=== PATIENT | female | born 1965 | race Caucasian/White ===

== ENCOUNTER → 2017-02-27 | Outpatient (CLI) | payer BC ==
[~2017-02-27] MED LIST: ERGO1CAP35 PO; LAMO150T32 PO
--- NOTE | 2017-02-27 15:12 | MAMMOGRAPHY REPORT ---
BILATERAL DIGITAL SCREENING MAMMOGRAM TOMOSYNTHESIS WITH CAD: 02/27/2017 CLINICAL HISTORY: Routine screening. Patient has no complaints. TECHNIQUE: Breast tomosynthesis in addition to standard 2D mammography was performed. Additional 2- D CC views were performed with nipples in profile. Current study was also evaluated with a Computer Aided Detection (CAD) system. COMPARISON: Comparison is made to exams dated: 02/23/2016 mammogram, 02/20/2015 mammogram, 4 ultrasound, 02/18/2014 mammogram, 04/28/2010 mammogram - [facility], and 08/29/2007 . BREAST COMPOSITION: The tissue of both breasts is extremely dense, which lowers the sensitivity of m ammography. FINDINGS: The parenchymal pattern is similar to prior mammograms. No developing mass, architectural distortion or cluster of suspicious microcalcifications is seen in either breast. IMPRESSION: ACR BI-RADS CATEGORY 2: BENIGN There is no mammographic evidence of malignancy. A 1 year screening mammogram is recommended. The pa tient will receive written notification of the results. Approximately 10% of breast cancers are not detected with mammography. A negative mammographic report should not delay biopsy if a clinically suggestive mass is present. [place] Guidry M.D. ay/:02/27/2017 13:43:26 Auto Winder: Ken Tapia M, [facility] letter sent: Normal 1/2 BI-RADS Code: ACR BI-RADS Category 2: Benign
== END | disposition home or self-care (01) ==
LOC: C.MAMM 09:19
PROVIDERS: ATTEND Family Medicine
DX: Z12.31 Encounter for screening mammogram for malignant neoplasm of breast (principal)

== ENCOUNTER → 2017-04-21 | Outpatient (CLI) | payer OTHER ==
[~2017-04-21] MED LIST changes: +LAMO150T PO; -LAMO150T32 PO
== END | disposition home or self-care (01) ==
LOC: C.PAPS 15:57
PROVIDERS: ATTEND Obstetrics & Gynecology
DX: Z12.4 Encounter for screening for malignant neoplasm of cervix (principal)

== ENCOUNTER 2017-05-08 08:28 | Emergency (ER) | payer OTHER ==
[~2017-05-08] VITALS: Ht 172.7 cm; Wt 56.3 kg
[2017-05-08 08:33] VITALS: TEMP 36.7; Ht 172.7 cm; Wt 56.3 kg
[2017-05-08] MEDS ORDERED: LAMO200T35 PO (09:14)
[2017-05-08] MEDS ORDERED: LEVE500T13 PO (09:14)
[2017-05-08] MEDS ORDERED: PROCHLORPERAZINE 5 MG/ML 2 ML VIAL IV STA (09:40)
[2017-05-08] MEDS ORDERED: KETOROLAC TROMETHAMINE 30 MG/ML VIAL IV STA (09:40)
[2017-05-08] MEDS ORDERED: SODIUM CHLORIDE 0.9% 1000ML 1,000 ML IV STA (09:42)
--- NOTE | 2017-05-08 10:16 | DIAGNOSTIC IMAGING REPORT ---
HEAD WITHOUT CONTRAST (CT) CLINICAL HISTORY: 51 years-old Female with severe lazaro. Acute severe headache with history of epilepsy TECHNIQUE: Multiple axial CT images of the head were obtained without contrast. A dose lowering technique was utilized adhering to the principles of ALARA. CT DOSE: 537.48 mGy.cm COMPARISON: CT head 07/22/2009, brain MRI 10/08/2013. FINDINGS: No acute intracranial hemorrhage, midline shift, intracranial mass, hydrocephalus, territorial ischemia or abnormal extra-axial collection. Ill-defined areas of increased attenuation within the region of the globus pallidus of the left is unchanged suggesting senescent calcification. Minimal low-attenuation within the periventricular white matter suggests microvascular ischemic changes. The calvarium is intact. The paranasal sinuses, mastoid air cells, and middle ear cavities are clear. IMPRESSION: No acute intracranial abnormality. The above report was generated using voice recognition software. It may contain grammatical, syntax or spelling errors. Electronically signed by: Jan Dye M.D. 05/08/2017 10:15 AM Dictated Date/Time: 05/08/2017 10:11 AM
[2017-05-08 11:04] LABS: BASO % 0.4 %; BASO ABS # 0.02 K/uL (0-0.2); EOS % 1.8 %; HEMATOCRIT 41.7 % (37-47); HEMOGLOBIN 14.2 g/dL (12.0-16.0); LYMPH % 27.8 %; LYMPH ABS # 1.55 K/uL (1.2-3.4); MEAN CELL VOLUME 93.5 fL (80-100); MEAN CORPUSCULAR HEMOGLOBIN 31.8 pg (25-34); MEAN CORPUSCULAR HGB CONC 34.1 g/dl (32-36); MONO % 10.8 %; NEUT % 59.2 %; PLATELET COUNT 243 K/uL (130-400); RED CELL DISTRIBUTION WIDTH SD 44.7 fL (36.4-46.3); WHITE BLOOD COUNT 5.57 K/uL (4.8-10.8)
--- NOTE | 2017-05-08 11:21 | EMERGENCY ROOM VISIT NOTE ---
History Report prepared by Mehrdad: Yousuf Orourke Under the Supervision of: Dr. Michaela Mclaughlin D.O. First contact with patient: 09:32 Chief Complaint: HEADACHE Stated Complaint: SEVERE HEADACHE, NECK PAIN AND NAUSEA History of Present Illness The patient is a 51 year old female who presents to the Emergency Room with complaints of a persistent right sided headache that began yesterday. She rates her pain a 10/10 in severity. She has a past medical history of epilepsy and is on Lamictal and Keppra. She denies any other past medical history. Four days ago , the patient had some abnormal left-sided neck swelling with a globalized headache. Her symptoms could be controlled with Ibuprofen and Aspirin at that time, which eventually helped resolve her symptoms. Two days ago, she started to have another globalized headache without any of the swelling. This persisted until today, until it changed to only a right-sided headache. Her pain is now radiating down her posterior neck into her upper back. She is experiencing nausea and some photophobia as well. She denies any fevers, vomiting, or any increased amounts of stress. She notes that she has been keeping up with her fluids. Source of History: patient Onset: yesterday Position: head Symptom Intensity: 10/10 Quality: ache Timing: constant Associated Symptoms: + nausea, No fevers, No vomiting Note: She is experiencing some photophobia as well. Her pain is radiating down the back of her neck into her upper back. Review of Systems See HPI for pertinent positives & negatives. A total of 10 systems reviewed and were otherwise negative. Past Medical & Surgical Medical Problems: (1) Epilepsy Family History Seizures Social History Smoking Status: Never Smoker Smokeless Tobacco Use: No Alcohol Use: none Drug Use: none Marital Status: Housing Status: lives with significant other Current/Historical Medications Scheduled Lamotrigine (Lamictal), 200 MG PO BID Levetiracetam (Keppra), 250 MG PO BID Allergies Coded Allergies: Penicillins (Verified Allergy, Unknown, 05/08/17) Physical Exam Vital Signs Date Time Temp Pulse Resp B/P (MAP) Pulse Ox O2 Delivery O2 Flow Rate FiO2 05/08/17 12:43 86 16 116/80 98 05/08/17 11:06 75 18 123/72 98 Room Air 05/08/17 08:33 36.7 100 18 143/87 97 Room Air Physical Exam HEENT: Head - normocephalic and atraumatic. Pupils are equal, round, and reactive to light. Extraocular eye muscles are intact and sclera are anicteric. Ears - bilaterally patent canals with noninjected tympanic membranes and no evidence of hemotympanum. Nose - moist nasal mucosa without discharge. Mouth - moist buccal mucosa. Oropharynx is nonerythematous and there is no tonsillar exudate or edema noted. Neck: Supple; no JVD, nuchal rigidity, cervical lymphadenopathy. Heart: Regular rate and rhythm. There is a normal S1 and S2 with no murmurs, clicks, or gallops appreciated. Lungs: Clear to auscultation bilaterally with no wheezes, rales, or rhonchi. Abdomen: Soft, completely nontender, nondistended, with good bowel sounds. There are no palpable pulsatile masses or hepatosplenomegaly. There is no guarding, rigidity, or rebound noted. Extremities: No evidence of cyanosis, clubbing, or edema. There are easily palpable peripheral pulses. Neuro:The patient is awake and alert, oriented to day, time, and place. Muscle strength is 5/5 in all 4 extremities. The patient has equal rate clerk strength and equal pedal push and pull. There are no cerebellar signs. Medical Decision & Procedures ER Provider Diagnostic Interpretation: Radiology results as stated below per my review and the radiologist's interpretation: HEAD WITHOUT CONTRAST (CT) CLINICAL HISTORY: 51 years-old Female with severe lazaro. Acute severe headache with history of epilepsy TECHNIQUE: Multiple axial CT images of the head were obtained without contrast. A dose lowering technique was utilized adhering to the principles of ALARA. CT DOSE: 537.48 mGy.cm COMPARISON: CT head 07/22/2009, brain MRI 10/08/2013. FINDINGS: No acute intracranial hemorrhage, midline shift, intracranial mass, hydrocephalus, territorial ischemia or abnormal extra-axial collection. Ill-defined areas of increased attenuation within the region of the globus pallidus of the left is unchanged suggesting senescent calcification. Minimal low-attenuation within the periventricular white matter suggests microvascular ischemic changes. The calvarium is intact. The paranasal sinuses, mastoid air cells, and middle ear cavities are clear. IMPRESSION: No acute intracranial abnormality. The above report was generated using voice recognition software. It may contain grammatical, syntax or spelling errors. Electronically signed by: Jan Dye M.D. 05/08/2017 10:15 AM Dictated Date/Time: 05/08/2017 10:11 AM Laboratory Results 05/08/17 10:45 Red Blood Count 4.46, Mean Corpuscular Volume 93.5, Mean Corpuscular Hemoglobin 31.8, Mean Corpuscular Hemoglobin Concent 34.1, Mean Platelet Volume 11.0, Neutrophils (%) (Auto) 59.2, Lymphocytes (%) (Auto) 27.8, Monocytes (%) (Auto) 10.8, Eosinophils (%) (Auto) 1.8, Basophils (%) (Auto) 0.4, Neutrophils # (Auto ) 3.30, Lymphocytes # (Auto) 1.55, Monocytes # (Auto) 0.60, Eosinophils # (Auto ) 0.10, Basophils # (Auto) 0.02 05/08/17 10:45 Test 05/08/17 09:40 05/08/17 10:45 05/08/17 10:50 Erythrocyte Sedimentation Rate 19 mm/hr (0-21) White Blood Count 5.57 K/uL (4.8-10.8) Red Blood Count 4.46 M/uL (4.2-5.4) Hemoglobin 14.2 g/dL (12.0-16.0) Hematocrit 41.7 % (37-47) Mean Corpuscular Volume 93.5 fL (80-100) Mean Corpuscular Hemoglobin 31.8 pg (25-34) Mean Corpuscular Hemoglobin Concent 34.1 g/dl (32-36) Platelet Count 243 K/uL (130-400) Mean Platelet Volume 11.0 fL (7.4-10.4) Neutrophils (%) (Auto) 59.2 % Lymphocytes (%) (Auto) 27.8 % Monocytes (%) (Auto) 10.8 % Eosinophils (%) (Auto) 1.8 % Basophils (%) (Auto) 0.4 % Neutrophils # (Auto) 3.30 K/uL (1.4-6.5) Lymphocytes # (Auto) 1.55 K/uL (1.2-3.4) Monocytes # (Auto) 0.60 K/uL (0.11-0.59) Eosinophils # (Auto) 0.10 K/uL (0-0.5) Basophils # (Auto) 0.02 K/uL (0-0.2) RDW Standard Deviation 44.7 fL (36.4-46.3) RDW Coefficient of Variation 13.0 % (11.5-14.5) Immature Granulocyte % (Auto) 0.0 % Immature Granulocyte # (Auto) 0.00 K/uL (0.00-0.02) Anion Gap 8.0 mmol/L (3-11) Est Creatinine Clear Calc Drug Dose 68.0 ml/min Estimated GFR () 90.0 Estimated GFR (Non- 77.7 BUN/Creatinine Ratio 17.0 (10-20) Calcium Level 9.1 mg/dl (8.5-10.1) Total Bilirubin 0.5 mg/dl (0.2-1) Aspartate Amino Transf (AST/SGOT) 14 U/L (15-37) Alanine Aminotransferase (ALT/SGPT) 24 U/L (12-78) Alkaline Phosphatase 108 U/L (45-117) C-Reactive Protein < 0.29 mg/dl (0-0.29) Total Protein 8.1 gm/dl (6.4-8.2) Albumin 4.6 gm/dl (3.4-5.0) Globulin 3.5 gm/dl (2.5-4.0) Albumin/Globulin Ratio 1.3 (0.9-2) Influenza Type A (RT-PCR) Neg for Influ A (NEG) Influenza Type B (RT-PCR) Neg for Influ B (NEG) Laboratory results per my review. Medications Administered Medications (Trade) Dose Ordered Sig/Soni Route Start Time Stop Time Status Last Admin Dose Admin Ketorolac Tromethamine (Toradol Inj) 30 mg NOW STAT IV 05/08/17 09:40 05/08/17 09:42 DC 05/08/17 11:08 30 MG Prochlorperazine Edisylate (Compazine Inj) 5 mg NOW STAT IV 05/08/17 09:40 05/08/17 09:42 DC 05/08/17 11:08 5 MG Sodium Chloride 1,000 ml @ 999 mls/hr Q1H1M STAT IV 05/08/17 09:42 05/08/17 10:42 DC 05/08/17 11:08 999 MLS/HR Procedure Compazine Inj 5 mg IV Toradol Inj 30 mg IV Sodium Chloride 1000 ml @ 999 mls/hr IV. ED Course 0932: Past medical records reviewed. The patient was evaluated in room C10. A complete history and physical exam was performed. An IV lock was initiated and labs are drawn as above. 0940: Ordered Compazine Inj 5 mg IV, Toradol Inj 30 mg IV 0942: Ordered Sodium Chloride 1000 ml @ 999 mls/hr IV. The patient will go for CT scan of the brain. 11:05 the patient is resting comfortably at this time. 1240: Upon reevaluation, the patient is feeling much better. Her headache is gone. I discussed findings and results with her. She verbalized agreement of the treatment plan. She was discharged home. Medical Decision The patient is a 51 year old female who presents to the ED with a headache. Differential diagnosis includes meningitis, influenza, dehydration, intracranial mass, cervical strain, tension headache, and migraine. Laboratory Results: Sed rate 19, no leukocytosis, stable H&H, normal renal function, normal glucose and LFTs, influenza negative, Keppra and Lamictal levels are pending Patient presents with unusual headache and some neck discomfort. She had no signs of meningismus. She is afebrile with no significant leukocytosis. I do not suspect meningitis. There is no signs of dehydration and influenza testing was negative. The patient is feeling more comfortable at this time. The headache has resolved. I've asked the patient to follow-up with the PCP if the headache returns. If symptoms worsen, she should return here to the emergency department. Medication Reconcilliation Current Medication List: was personally reviewed by me Blood Pressure Screening Patient's blood pressure: Elevated blood pressure Blood pressure disposition: Elevated BP felt to be situational Impression Primary Impression: Headache Scribe Attestation The scribe's documentation has been prepared under my direction and personally reviewed by me in its entirety. I confirm that the note above accurately reflects all work, treatment, procedures, and medical decision making performed by me. Departure Information Dispostion Home / Self-Care Referrals Kev Burrell M.D. (PCP) Mariposa Valle D.O. Forms HOME CARE DOCUMENTATION FORM, IMPORTANT VISIT INFORMATION Patient Instructions Headache Pain, My [facility] Additional Instructions Rest. Use ibuprofen for head pain. Return to the ER for worsening symptoms. Otehrwise follow up with PCP Problem Qualifiers Primary Impression: Headache Headache type: unspecified Headache chronicity pattern: acute headache Intractability: not intractable Qualified Codes: R51 - Headache
[2017-05-08 11:24] LABS: ALBUMIN 4.6 gm/dl (3.4-5.0); ALT/SGPT 24 U/L (12-78); AST/SGOT 14 U/L (15-37); BLOOD UREA NITROGEN 15 mg/dl (7-18); CALCIUM 9.1 mg/dl (8.5-10.1); CARBON DIOXIDE 28 mmol/L (21-32); CREATININE 0.86 mg/dl (0.60-1.20); GLUCOSE 96 mg/dl (70-99); POTASSIUM 3.6 mmol/L (3.5-5.1); SODIUM 138 mmol/L (136-145)
[2017-05-08 11:26] LABS: ALKALINE PHOSPHATASE 108 U/L (45-117); TOTAL PROTEIN 8.1 gm/dl (6.4-8.2)
[2017-05-08 11:43] LABS: INFLUENZA A PCR Neg for Influ A (NEG); INFLUENZA B PCR Neg for Influ B (NEG)
[2017-05-08 12:43] VITALS: BP 116/80; PULSE 86; O2SAT 98
[2017-05-11 03:31] LABS: KEPPRA (LEVETIRACETAM) *15142X 9.4 mcg/mL; LAMICTAL (LAMOTRIGINE)**22060 12.5 mcg/mL (4.0-18.0)
== END 2017-05-08 12:44 | disposition home or self-care (01) ==
LOC: C.EDB 08:30 → C.EDC 12:44
DX: R51 Headache (principal); G40.909 Epilepsy, unspecified, not intractable, without status epilepticus; Z82.0 Family history of epilepsy and other diseases of the nervous system; Z79.899 Other long term (current) drug therapy

== ENCOUNTER → 2017-05-29 | Day surgery (SDC) | payer OTHER ==
[2017-05-24 12:10] VITALS: Ht 172.7 cm; Wt 54.5 kg
[~2017-05-29] VITALS: Ht 172.7 cm; Wt 54.5 kg
[~2017-05-29] MED LIST changes: +ACETAMINOPHEN 325 MG TAB PO PRN; +ATROPINE SULFATE 0.1 MG/ML 5ML SYR IV PRN; +ATROPINE SULFATE 1% OP OINT PER APPLICATION CHARGE ONE; +BUPIVACAINE HCL 0.75% 10 ML AMP/VIAL ONE; +CEFAZOLIN SOD 1 GM VIAL ONE; +DEXAMETHASONE SOD INJ 4 MG/ML VIAL ONE; -ERGO1CAP35 PO; +EpHEDrine SULFATE INJ 50 MG/ML AMP IV PRN; +EpINEphrine INJ 1MG/ML AMP 1 MG/ML AMP ONE; +FENTANYL CITRATE INJ 50 MCG/1 ML 2 ML VIAL IV PRN; +FENTANYL CITRATE INJ 50 MCG/1 ML 2 ML VIAL ONE; +HYALURONIDASE HUMAN 150 UNIT/ML INJ ONE; +INDOCYANINE GREEN 25 MG/10 ML ONE; +LACTATED RINGER'S 1000ML 500 ML IV SCH; -LAMO150T PO; +LAMO200T35 PO; +LEVE500T13 PO; +LIDOCAINE HCL 2% 2 ML VIAL (20MG/ML) ONE; +MIDAZOLAM HCL 1 MG/ML 2ML VIAL ONE; +NEOMYCIN/POLYMYX/DEXAMETH OP OINT PER APP CHARGE ONE; +ONDANSETRON INJ 2 MG/ML 2 ML VIAL IV PRN; +POVIDONE-IODINE OP SOLN (SURGERY CNTR CHARGING ONLY) ONE; +PROPARACAINE 0.5% OP SOLN PER DROP CHARGE OPL SCH; +PROPOFOL IV EMULSION 10 MG/ML 20 ML VIAL IV ONE; +TIMOLOL MALEATE 0.5% OP SOLN PER DROP CHARGE ONE; +TRIAMCINOLONE ACETONIDE OPHTH 40 MG/ML VIAL STERILE IO ONE; +VANCOMYCIN HCL 1000MG/20ML VIAL ONE
[2017-05-29] MEDS: PHENYLEPHRINE HCL 2.5% OP SOLN PER DROP CHARGE OPL SCH ×2 (07:31→07:37)
[2017-05-29] MEDS: TROPICAMIDE 1% OP SOLN PER DROP CHARGE OPL SCH ×2 (07:32→07:38)
--- NOTE | 2017-05-29 08:11 | History & Physical Bridge - SC ---
H&P Re-Evaluation Bridge Note: pt has macular hole left eye and is having vitrectomy left eye. I have examined the patient, reviewed the History & Physical and in the interval since the performance of the History & Physical I have noted the following changes of clinical significance: No changes noted
--- NOTE | 2017-05-29 09:23 | [facility] Operative Report ---
Operative Report Date of Service May 29, 2017. Operative Report PREOPERATIVE DIAGNOSIS: Macular hole, left eye. ICD10 CODE: H35.342 POSTOPERATIVE DIAGNOSIS: same. PROCEDURE: 1. Pars plana vitrectomy, 23 gauge. 2. Membrane peeling of the internal limiting membrane. 3. Fluid-air exchange. 4. Air-gas exchange w/ SF6 20 %. All to the left eye. CPT CODE: 67240 SURGEON: Mark lFeming D.O. COMPLICATIONS: None. ESTIMATED BLOOD LOSS: None. SPECIMENS: None. ANESTHESIA: Retrobulbar block and MAC. INDICATIONS FOR PROCEDURE: The patient has a macular hole that is visually significant. Vitrectomy surgery is indicated to decrease risk of vision loss and potentially improve vision. CONSENT: The risks, benefits and alternatives were discussed with the patient including but not limited to decreased visual acuity, failure to achieve desired results, loss of the eye, infection, pain, glaucoma, lens changes, retinal tears, retinal detachment, the need for more procedures, drooping of the eyelid, blindness, and double vision. The patient is aware of risks and consents to the surgery. Consent is signed and on the chart. OPERATION AND FINDINGS: The patient was brought to the operating room where the patient was identified by name, date, and medical record number. The surgical site was confirmed with the informed written consent. The patient was sedated by the anesthesiology team after which a 50:50 mixture of 2% lidocaine and 0.75% bupivacaine with hyaluronidase was administered in a standard retrobulbar fashion. A total of 4 ml was administered without difficulty. The patient was then prepped and draped in the usual sterile manner for retinal surgery. A wire lid speculum was placed and an It 23-gauge trocar cannula system was employed. The inferior temporal trocar cannula was first placed in an angled fashion 3.75mm posterior to the surgical limbus and the infusion cannula was inserted into this cannula after which the intravitreal position was verified prior to turning the infusion on. Two more trocar cannulas were then inserted in an angled fashion, one in the superior temporal, and one in the superior nasal quadrant both 3.75mm posterior to the surgical limbus. A light pipe and vitrector were then introduced into the eye and the BIOM wide angle viewing system was brought into place. Standard core vitrectomy was performed and the vitreous was insured to be totally detached from the posterior pole with the aid of the vitrector. Next 0.05ml of indocyanine green was placed over the macular surface to stain the internal limiting membrane. This was washed from the eye after 10 seconds. At this point a flat contact lens was placed on the surface of the eye and a flex scraper and ILM forceps were then used to gently peel the internal limiting membrane surrounding the macular hole without difficulty. At this point scleral depression was performed for 360 degrees and no retinal tears or detachments were noted. A soft tip cannula was used to perform a fluid- air exchange. Next, SF6 20% was injected in through the infusion cannula for a complete gas fill of the eye. The trocar cannulas were then removed and found to be air tight. The intraocular pressure was found to be within normal limits by palpation and subconjunctival injections of vancomycin and dexamethasone were administered inferiorly and superiorly. The wire lid speculum was removed. Maxitrol and timolol were applied to the surface of the eye. A light patch and shield were taped over the surface of the eye and the patient left the Operating Room in stable condition having tolerated the procedure well. DISPOSITION: A gas bracelet was placed on the patients wrist. The patient was instructed to maintain a face down position overnight. The patient is to call immediately if there are any problems overnight. I attest to the content of the Intraoperative Record and any orders documented therein. Any exceptions are noted below.
--- NOTE | 2017-05-29 09:25 | Discharge Instructions-SurgCtr ---
Discharge Instructions Date of Service May 29, 2017. Visit Reason for Visit: Left Eye Macular Hole Discharge Discharge Diagnosis / Problem: same Discharge Goals Goal(s): Improve function Activity Recommendations Activity Limitations: per Instructions/Follow-up section Anesthesia . Post Anesthesia Instructions: If you have had General Anesthesia or IV Sedation: * Do not drive today. * Resume driving when surgeon permits. * Do not make important decisions or sign legal documents today. * Call surgeon for: 1. Temperature elevations greater than 101 degrees F. 2. Uncontrollable pain. 3. Excessive bleeding. 4. Persistent nausea and vomiting. 5. Medication intolerance (nausea, vomiting or rash). * For nausea and vomiting use only clear liquids such as: tea, soda, bouillon until nausea subsides, then gradually increase diet as tolerated. * If you have any concerns or questions, call your surgeon's office. If physician is unavailable and it is an emergency, call 911 or go to the nearest emergency room. . Instructions / Follow-Up Instructions / Follow-Up * May take Tylenol if needed for discomfort. * Do NOT lay flat on back and position head as follows: Face forward, chin down as much as possible. Sleep on right side. * Do NOT remove green bracelet until instructed to do so by your surgeon and follow these precautions: * No air travel * No travel above 2500 feet * No nitrous oxide (N2O). * Do NOT remove eye shield. * NO straining, heavy lifting (>15 pounds) or bending below waist. * Avoid getting water or soap directly into operative eye. * Do NOT rub eye. If you experience increasing eye pain not relieved by medication, please contact us immediately at [phone]. If you are unable to reach someone at the above number, call [phone] and ask to speak with the EYE DOCTOR RAILROAD SIGNAL TECHNICIAN. Inform them that you are a Dr. Fleming patient who had recent surgery. Diet Recommendations Home Diet: resume previous diet Pending Studies Studies pending at discharge: no Medical Emergencies . Who to Call and When: Medical Emergencies: If at any time you feel your situation is an emergency, please call 911 immediately. . Non-Emergent Contact Non-Emergency issues call your: Executive Office Manager . . "Provider Documentation" section prepared by Mark Fleming. .
[2017-05-29 09:26] VITALS: TEMP 36.2
[2017-05-29 11:13] VITALS: BP 110/70; PULSE 57; O2SAT 97
--- NOTE | 2017-05-29 11:21 | Anesthesia Progress Nt - [facility] ---
Anesthesia Post Op Note Date & Time May 29, 2017 at 11:20 Vital Signs Pain Intensity: 0 Vital Signs Past 12 Hours Date Time Temp Pulse Resp B/P (MAP) Pulse Ox O2 Delivery O2 Flow Rate FiO2 05/29/17 11:13 57 16 110/70 (83) 97 Room Air 05/29/17 10:28 58 16 99/61 (74) 100 Room Air 05/29/17 10:19 60 16 105/68 (80) 99 Room Air 05/29/17 09:26 36.2 66 16 122/82 (95) 99 Room Air 05/29/17 07:26 36.6 84 18 124/83 (97) 97 Room Air Notes Mental Status: alert / awake / arousable, participated in evaluation Pt Amnestic to Procedure: Yes Nausea / Vomiting: adequately controlled, improving with treatment Pain: adequately controlled Airway Patency, RR, SpO2: stable & adequate BP & HR: stable & adequate Hydration State: stable & adequate Anesthetic Complications: no major complications apparent
== END | disposition home or self-care (01) ==
LOC: X.SURG 06:55
PROVIDERS: ATTEND Ophthalmology
DX: H35.342 Macular cyst, hole, or pseudohole, left eye (principal); Z88.0 Allergy status to penicillin; Z98.818 Other dental procedure status; Z82.49 Family history of ischemic heart disease and other diseases of the circulatory system

== ENCOUNTER → 2017-06-16 | Outpatient (CLI) | payer OTHER ==
[~2017-06-16] MED LIST changes: -ACETAMINOPHEN 325 MG TAB PO PRN; -ATROPINE SULFATE 0.1 MG/ML 5ML SYR IV PRN; -ATROPINE SULFATE 1% OP OINT PER APPLICATION CHARGE ONE; -BUPIVACAINE HCL 0.75% 10 ML AMP/VIAL ONE; -CEFAZOLIN SOD 1 GM VIAL ONE; -DEXAMETHASONE SOD INJ 4 MG/ML VIAL ONE; -EpHEDrine SULFATE INJ 50 MG/ML AMP IV PRN; -EpINEphrine INJ 1MG/ML AMP 1 MG/ML AMP ONE; -FENTANYL CITRATE INJ 50 MCG/1 ML 2 ML VIAL IV PRN; -FENTANYL CITRATE INJ 50 MCG/1 ML 2 ML VIAL ONE; +GADAVIST IV PRN; -HYALURONIDASE HUMAN 150 UNIT/ML INJ ONE; -INDOCYANINE GREEN 25 MG/10 ML ONE; -LACTATED RINGER'S 1000ML 500 ML IV SCH; -LIDOCAINE HCL 2% 2 ML VIAL (20MG/ML) ONE; -MIDAZOLAM HCL 1 MG/ML 2ML VIAL ONE; -NEOMYCIN/POLYMYX/DEXAMETH OP OINT PER APP CHARGE ONE; -ONDANSETRON INJ 2 MG/ML 2 ML VIAL IV PRN; -POVIDONE-IODINE OP SOLN (SURGERY CNTR CHARGING ONLY) ONE; -PROPARACAINE 0.5% OP SOLN PER DROP CHARGE OPL SCH; -PROPOFOL IV EMULSION 10 MG/ML 20 ML VIAL IV ONE; -TIMOLOL MALEATE 0.5% OP SOLN PER DROP CHARGE ONE; -TRIAMCINOLONE ACETONIDE OPHTH 40 MG/ML VIAL STERILE IO ONE; -VANCOMYCIN HCL 1000MG/20ML VIAL ONE
--- NOTE | 2017-06-16 07:56 | DIAGNOSTIC IMAGING REPORT ---
MRI OF THE BRAIN COMBO CLINICAL HISTORY: Strokelike symptoms. Seizure. Visual changes. COMPARISON STUDY: CT of the brain dated 05/08/2017. MRI of the brain dated 12/24/2015. TECHNIQUE: MRI of the brain was performed utilizing various T1 and T2-weighted sequences in the axial, sagittal, and coronal planes. Contrast-enhanced sequences were acquired following the administration of 5.5 cc of Gadavist. The examination is performed using the seizure protocol. FINDINGS: Brain parenchyma: There is minimal subcortical and periventricular microangiopathic disease. There is abnormally increased T2 signal identified within the right vertebral cortex. This is best seen on coronal FLAIR image #14 on high-resolution coronal T2 image #15. There is no hemorrhage or mass effect. There is no restricted diffusion to suggest acute ischemia. No enhancing mass lesion is identified on the postcontrast images. Melgar-white matter differentiation is preserved. No extra-axial fluid collection is seen. The cerebellar tonsils are normal in configuration. Ventricles, sulci, and cisterns: Normal in configuration. Pituitary and sella: Unremarkable. Intracranial vasculature: Normal flow voids are maintained at the skull base. Orbits: The bony orbits are grossly intact. Orbital contents are normal in appearance. Sinuses and mastoids: Clear. Calvarium: Unremarkable. Cervical cord: Partially visualized cervical spinal cord is normal in morphology and signal intensity. IMPRESSION: 1. No acute intracranial abnormality. 2. There is abnormal T2 signal identified within the right hippocampus, potentially related to patient's reported history of seizure disorder. Electronically signed by: José Hwang M.D. 06/16/2017 7:54 AM Dictated Date/Time: 06/16/2017 7:48 AM
== END | disposition home or self-care (01) ==
LOC: C.MRIBC 06:52
PROVIDERS: ATTEND Psychiatry & Neurology Neurology
DX: R90.89 Other abnormal findings on diagnostic imaging of central nervous system (principal); G40.909 Epilepsy, unspecified, not intractable, without status epilepticus; H53.9 Unspecified visual disturbance; R29.90 Unspecified symptoms and signs involving the nervous system

== ENCOUNTER 2017-06-24 05:23 | Emergency (ER) | payer OTHER ==
[~2017-06-24] VITALS: Ht 172.7 cm; Wt 66.2 kg
[~2017-06-24 05:23] MED LIST changes: -GADAVIST IV PRN
[2017-06-24 05:26] VITALS: TEMP 36.5; Ht 172.7 cm; Wt 66.2 kg
[2017-06-24 05:34] VITALS: O2SAT 100
[2017-06-24 06:01] LABS: BASO % 0.3 %; BASO ABS # 0.02 K/uL (0-0.2); EOS % 2.8 %; EOS ABS # 0.17 K/uL (0-0.5); HEMATOCRIT 38.3 % (37-47); IG# 0.02 K/uL (0.00-0.02); LYMPH ABS # 2.32 K/uL (1.2-3.4); MEAN CELL VOLUME 93.2 fL (80-100); MEAN CORPUSCULAR HEMOGLOBIN 31.6 pg (25-34); MEAN CORPUSCULAR HGB CONC 33.9 g/dl (32-36); MEAN PLATELET VOLUME 10.7 fL (7.4-10.4); MONO % 9.7 %; MONO ABS # 0.59 K/uL (0.11-0.59); NEUT % 48.9 %; NEUT ABS # 2.98 K/uL (1.4-6.5); PLATELET COUNT 238 K/uL (130-400); RED CELL DISTRIBUTION WIDTH CV 13.1 % (11.5-14.5); RED CELL DISTRIBUTION WIDTH SD 44.7 fL (36.4-46.3)
[2017-06-24 06:12] LABS: ALBUMIN 3.9 gm/dl (3.4-5.0); ALT/SGPT 21 U/L (12-78); AST/SGOT 13 U/L (15-37); BLOOD UREA NITROGEN 13 mg/dl (7-18); CALCIUM 8.8 mg/dl (8.5-10.1); CARBON DIOXIDE 28 mmol/L (21-32); CREATININE 0.88 mg/dl (0.60-1.20); GLUCOSE 95 mg/dl (70-99); LIPASE 225 U/L (73-393); POTASSIUM 3.5 mmol/L (3.5-5.1); SODIUM 138 mmol/L (136-145)
--- NOTE | 2017-06-24 06:17 | DIAGNOSTIC IMAGING REPORT ---
CHEST ONE VIEW PORTABLE CLINICAL HISTORY: chest pain pain. Dyspnea. COMPARISON STUDY: No previous studies for comparison. FINDINGS: The bones soft tissues and hemidiaphragms are normal. The cardiomediastinal silhouette is normal. The lungs are clear. The pulmonary vasculature is normal. IMPRESSION: Negative chest. The above report was generated using voice recognition software. It may contain grammatical, syntax or spelling errors. Electronically signed by: Gavin Gloria M.D. 06/24/2017 6:16 AM Dictated Date/Time: 06/24/2017 6:16 AM
[2017-06-24 06:22] VITALS: O2SAT 99
[2017-06-24 06:23] LABS: ALKALINE PHOSPHATASE 103 U/L (45-117); TOTAL PROTEIN 7.5 gm/dl (6.4-8.2)
--- NOTE | 2017-06-24 06:29 | EMERGENCY ROOM VISIT NOTE ---
History Report prepared by Mehrdad: Oralia Nance Under the Supervision of: Dr. Sara Johnston D.O. First contact with patient: 05:29 Chief Complaint: CHEST PAIN Stated Complaint: CHEST PAIN,NUMBNESS Nursing Triage Summary: pt states she awoke at 0100 with right sided cp ,painover her breast. pt did not take any meds lpta. History of Present Illness The patient is a 52 year old female who presents to the Emergency Room with complaints of intermittent chest pain starting 2 months ago. The patient states that it is always in the same spot, but it is worsening with each episode. She states that the pain is sharp and lasts for a few minutes each time. The patient complains of constant nausea, shortness of breath with the pain, diaphoresis, and numbness. She notes that the numbness is just in her hands, feet, and lower face. She reports that the numbness is worse on the left side compared to the right. She notes that the numbness tends to come with the chest pain, but not always. The patient denies medication changes, fevers, chills, dizziness, lightheadedness, abnormal bowel movements, a trigger for the pain, and position change affecting the pain. She notes that her mother has had a heart attack and stent placement. The patient notes that she is schedule Monday to have an MRA, EEG and US to look at her head and arteries for causes. On review of the MR patient was seen here for a headache beginning of May and had an unremarkable CAT scan of the head. Patient had a follow-up MRI of the brain on June 16 which did not show any acute findings. According to patient, she had already been having intermittent paresthesias accompanied her chest pain during this time. Source of History: patient Onset: 2 months ago Position: chest Quality: sharp Timing: intermittent Associated Symptoms: + diaphoresis, + SOB, + nausea, + numbness, No fevers, No chills Note: The patient denies medication changes, dizziness, lightheadedness, abnormal bowel movements, a trigger for the pain, and position change affecting the pain. Review of Systems See HPI for pertinent positives & negatives. A total of 10 systems reviewed and were otherwise negative. Past Medical & Surgical Medical Problems: (1) Epilepsy Family History FH: heart attack Seizures Stent Social History Smoking Status: Never Smoker Alcohol Use: none Drug Use: none Marital Status: Housing Status: lives with significant other Current/Historical Medications Scheduled Lamotrigine (Lamictal), 200 MG PO BID Levetiracetam (Keppra), 250 MG PO BID Allergies Coded Allergies: Cephalexin (Verified Allergy, Unknown, HIVES/SWELLING, 05/29/17) Penicillins (Verified Allergy, Unknown, HIVES/SWELLING, 05/29/17) Physical Exam Vital Signs Date Time Temp Pulse Resp B/P (MAP) Pulse Ox O2 Delivery O2 Flow Rate FiO2 06/24/17 08:08 89 16 122/85 06/24/17 06:22 74 20 130/81 99 Room Air 06/24/17 05:41 99 Room Air 06/24/17 05:34 100 Room Air 06/24/17 05:31 92 06/24/17 05:26 36.5 89 18 148/91 97 Room Air Physical Exam GENERAL: alert, well appearing, well nourished, no distress, non-toxic EYE EXAM: normal conjunctiva, PERRL and EOM's grossly intact OROPHARYNX: no exudate, no erythema, lips, buccal mucosa, and tongue normal and mucous membranes are moist NECK: supple, no nuchal rigidity, no adenopathy, non-tender LUNGS: Clear to auscultation. Normal chest wall mechanics HEART: no murmurs, S1 normal and S2 normal CHEST: No reproducible chest pain to palpation. ABDOMEN: abdomen soft, non-tender, normo-active bowel sounds, no masses, no rebound or guarding. BACK: Back is symmetrical on inspection and there is no deformity, no midline tenderness, no CVA tenderness. SKIN: no rashes and no bruising UPPER EXTREMITIES: upper extremities are grossly normal. LOWER EXTREMITIES: No pitting edema. NEURO EXAM: Normal sensorium, cranial nerves II-XII grossly intact, normal speech, no gross weakness of arms, no gross weakness of legs. Subjective mild sensation to the left hand and left foot. Medical Decision & Procedures ER Provider Diagnostic Interpretation: Radiology results have been interpreted by the radiologist and reviewed by me. CHEST ONE VIEW PORTABLE CLINICAL HISTORY: chest pain pain. Dyspnea. COMPARISON STUDY: No previous studies for comparison. FINDINGS: The bones soft tissues and hemidiaphragms are normal. The cardiomediastinal silhouette is normal. The lungs are clear. The pulmonary vasculature is normal. IMPRESSION: Negative chest. The above report was generated using voice recognition software. It may contain grammatical, syntax or spelling errors. Electronically signed by: Gavin Gloria M.D. 06/24/2017 6:16 AM Dictated Date/Time: 06/24/2017 6:16 AM Laboratory Results 06/24/17 05:30 Red Blood Count 4.11, Mean Corpuscular Volume 93.2, Mean Corpuscular Hemoglobin 31.6, Mean Corpuscular Hemoglobin Concent 33.9, Mean Platelet Volume 10.7, Neutrophils (%) (Auto) 48.9, Lymphocytes (%) (Auto) 38.0, Monocytes (%) (Auto) 9.7, Eosinophils (%) (Auto) 2.8, Basophils (%) (Auto) 0.3, Neutrophils # (Auto) 2.98, Lymphocytes # (Auto) 2.32, Monocytes # (Auto) 0.59, Eosinophils # (Auto) 0.17, Basophils # (Auto) 0.02 06/24/17 05:30 Test 06/24/17 05:30 06/24/17 07:35 White Blood Count 6.10 K/uL (4.8-10.8) Red Blood Count 4.11 M/uL (4.2-5.4) Hemoglobin 13.0 g/dL (12.0-16.0) Hematocrit 38.3 % (37-47) Mean Corpuscular Volume 93.2 fL (80-100) Mean Corpuscular Hemoglobin 31.6 pg (25-34) Mean Corpuscular Hemoglobin Concent 33.9 g/dl (32-36) Platelet Count 238 K/uL (130-400) Mean Platelet Volume 10.7 fL (7.4-10.4) Neutrophils (%) (Auto) 48.9 % Lymphocytes (%) (Auto) 38.0 % Monocytes (%) (Auto) 9.7 % Eosinophils (%) (Auto) 2.8 % Basophils (%) (Auto) 0.3 % Neutrophils # (Auto) 2.98 K/uL (1.4-6.5) Lymphocytes # (Auto) 2.32 K/uL (1.2-3.4) Monocytes # (Auto) 0.59 K/uL (0.11-0.59) Eosinophils # (Auto) 0.17 K/uL (0-0.5) Basophils # (Auto) 0.02 K/uL (0-0.2) RDW Standard Deviation 44.7 fL (36.4-46.3) RDW Coefficient of Variation 13.1 % (11.5-14.5) Immature Granulocyte % (Auto) 0.3 % Immature Granulocyte # (Auto) 0.02 K/uL (0.00-0.02) Prothrombin Time 10.5 SECONDS (9.0-12.0) Prothromb Time International Ratio 1.0 (0.9-1.1) D-Dimer < 190 ug/L FEU (0-500) Anion Gap 7.0 mmol/L (3-11) Est Creatinine Clear Calc Drug Dose 74.6 ml/min Estimated GFR () 86.9 Estimated GFR (Non- 75.0 BUN/Creatinine Ratio 15.4 (10-20) Calcium Level 8.8 mg/dl (8.5-10.1) Magnesium Level 2.2 mg/dl (1.8-2.4) Total Bilirubin 0.4 mg/dl (0.2-1) Aspartate Amino Transf (AST/SGOT) 13 U/L (15-37) Alanine Aminotransferase (ALT/SGPT) 21 U/L (12-78) Alkaline Phosphatase 103 U/L (45-117) Troponin I < 0.015 ng/ml (0-0.045) Total Protein 7.5 gm/dl (6.4-8.2) Albumin 3.9 gm/dl (3.4-5.0) Globulin 3.6 gm/dl (2.5-4.0) Albumin/Globulin Ratio 1.1 (0.9-2) Lipase 225 U/L (73-393) Thyroid Stimulating Hormone (TSH) 2.340 uIu/ml (0.300-4.500) Bedside Troponin I < 0.030 ng/ml (0-0.045) Laboratory results per my review. ECG Per My Interpretation Indication: chest pain Rate (beats per minute): 79 Rhythm: normal sinus Findings: no acute ischemic change, no ectopy, other (normal axis, normal intervals) ED Course 0543: The patient was evaluated in room A2. A complete history and physical exam was performed. 0649: I reevaluated the patient and she has had no recurrent chest pain. Medical Decision Differential diagnoses includes but is not limited to acute coronary syndrome, myocardial infarction, pericarditis, pulmonary embolus, aortic dissection, pneumonia, pneumothorax, musculoskeletal, shingles, esophageal. Heart score 0 Low risk Wells, d-dimer negative Patient well-appearing here despite complaints. Patient seemingly anxious. Symptoms have been going on for 6 weeks. Patient has in the interim had outpatient neurology evaluation which has been negative for any acute process. I do not feel patient's paresthesias are consistent with CVA or other acute intracranial pathology. Possible side effect of patient's seizure medication, versus related to other neurologic disorder including possible multiple sclerosis. Patient did not have any recurrent episodes of chest pain while here , patient is low risk for ACS, and no EKG changes noted. I do not suspect PE, tamponade, effusion, occult infectious etiology, perforation, GI bleed. No reproducible pain on exam and patient with no pain during exertion here. She is tolerating p.o. and ambulating with a steady gait. Discussed with patient close follow-up with family doctor and possible need for referral to cardiology if symptoms persist. Discussed continued scheduled appointments with neurology and for additional neuro testing as already scheduled. Discussed symptoms to watch and return for, she verbalized understanding was agreeable with plan. Medication Reconcilliation Current Medication List: was personally reviewed by me Blood Pressure Screening Patient's blood pressure: Elevated blood pressure Blood pressure disposition: Elevated BP felt to be situational Impression Primary Impression: Chest pain Additional Impression: Paresthesia Scribe Attestation The scribe's documentation has been prepared under my direction and personally reviewed by me in its entirety. I confirm that the note above accurately reflects all work, treatment, procedures, and medical decision making performed by me. Departure Information Dispostion Home / Self-Care Referrals Mariposa Valle D.O. (PCP) Patient Instructions My [facility] Additional Instructions Please continue your scheduled appointments for the evaluation of your headaches. Please follow-up with your family doctor regarding the episodes of chest pain as well. He may need additional cardiology testing including an echo of your heart or stress test. If you have any worsening episodes of pain, develop trouble breathing, vomiting, fevers, dizziness, passing out, or you have any other new concerns, please return the emergency room. Please continue your regular medications as prescribed. Problem Qualifiers Primary Impression: Chest pain Chest pain type: unspecified Qualified Codes: R07.9 - Chest pain, unspecified
[2017-06-24 08:08] VITALS: BP 122/85; PULSE 89
== END 2017-06-24 08:18 | disposition home or self-care (01) ==
LOC: C.EDB 05:24 → C.EDA 08:18
DX: R07.9 Chest pain, unspecified (principal); R20.2 Paresthesia of skin; G40.909 Epilepsy, unspecified, not intractable, without status epilepticus; Z82.49 Family history of ischemic heart disease and other diseases of the circulatory system; Z79.899 Other long term (current) drug therapy; Z88.1 Allergy status to other antibiotic agents; Z88.0 Allergy status to penicillin

== ENCOUNTER → 2017-06-26 | Outpatient (CLI) | payer OTHER ==
--- NOTE | 2017-06-28 13:21 | EEG Procedure Note ---
EEG Procedure Note Date of Service Jun 26, 2017. Start / End Times Start Time: 2:37 PM End Time: 2:58 PM Referring Physician Kev Burrell History This is a 52-year-old female with history of seizure disorder and abnormal T2 signal of the right hippocampus. EEG for further evaluation of epilepsy. Home Medication List Scheduled Lamotrigine (Lamictal), 200 MG PO BID Levetiracetam (Keppra), 250 MG PO BID Description This is a 21 electrode EEG with a single channel dedicated to limited EKG. The electrodes were placed in accordance with the International 10-20 system. At the start of the recording the patient was in an awake state. Background was well organized and composed of mixed alpha and beta frequencies. There was intermittent left temporal theta slowing. There was a symmetric well-formed moderate amplitude 8-9Hz posterior dominant rhythm that was reactive to eye opening and closure. Hyperventilation was not done. Intermittent photic stimulation at various frequencies produced no abnormalities. There was no state changes or sleep transients. Interpretation This is an abnormal routine EEG secondary to intermittent left temporal theta slowing during the awake state. There was no electrographic seizures or epileptiform discharges. Clinical Correlation This EEG indicates functional or structural cerebral dysfunction over the left temporal area. There was no focal slowing or epileptiform discharges noted over the right temporal area in relationship to MRI findings of abnormal T2 signal over the right hippocampus.
== END | disposition home or self-care (01) ==
LOC: C.NEUR 14:13
PROVIDERS: ATTEND Psychiatry & Neurology Neurology
DX: G40.909 Epilepsy, unspecified, not intractable, without status epilepticus (principal)

== ENCOUNTER → 2017-06-26 | Outpatient (CLI) | payer OTHER ==
--- NOTE | 2017-06-26 13:57 | DIAGNOSTIC IMAGING REPORT ---
MRA OF THE INTRACRANIAL CIRCULATION WITHOUT CONTRAST CLINICAL HISTORY: Headache. Family history of cerebral aneurysm. Seizure disorder. COMPARISON STUDY: None. TECHNIQUE: Utilizing a 1.5 Mayra magnet and 3-D [id number] technique, unenhanced MRA of the intracranial circulation was obtained. FINDINGS: The bilateral M1, M2, A1 and A2 segments are patent. There is no abrupt vessel cutoff. No intracranial aneurysm is identified. The right vertebral artery ends in PICA. There is persistence of the right posterior cerebral artery. There is no evidence for dissection within the major intracranial vessels. No significant stenosis is present. IMPRESSION: 1. No intracranial aneurysm. 2. No abrupt vessel cut off. 3. 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 Electronically signed by: Keith Cosby M.D. 06/26/2017 1:56 PM Dictated Date/Time: 06/26/2017 1:51 PM
--- NOTE | 2017-06-26 14:10 | DIAGNOSTIC IMAGING REPORT ---
CAROTID DOPPLER NECK ART CLINICAL HISTORY: 52 years-old Female presenting with headache, family HX OF CEREBRAL Aneurysm, seizure DI. TECHNIQUE: Real-time grayscale and color and spectral Doppler ultrasound imaging of the bilateral carotid arteries was performed. NASCET criteria was used in evaluating this study. COMPARISON: None. FINDINGS: Right: Common carotid: Patent. Peak systolic velocity 82 cm/s. Internal carotid artery: Patent. Peak systolic velocity 93 cm/s. Systolic ratio: 1.1. External carotid artery: Patent. Peak systolic velocity 75 cm/s. Left: Common carotid: Patent. Peak systolic velocity 83 cm/s. Internal carotid artery: Patent. Peak systolic velocity 79 cm/s. Systolic ratio: 1.0. External carotid artery: Patent. Peak systolic velocity 73 cm/s. Bilateral antegrade flow within the vertebral arteries. Reference ranges: Stenosis measurements are compared to reference velocity parameters. Primary parameters: ICA peak systolic velocity (PSV) < 125 cm/s normal or indicating < 50% stenosis; ICA PSV 125-230 cm/s equivalent to 50-69% stenosis; ICA PSV > 230 cm/s equivalent to greater than or equal to 70% stenosis. Additional parameters: ICA PSV to common carotid artery PSV ratio < 2 normal or < 50% stenosis; 2-4 equates to 50-69% stenosis, > 4 equates to greater than or equal to 70% stenosis. Normal ICA end-diastolic velocity less than 40. Blood pressure Brachial: Right: 116/83 mmHg, Left: 131/81 mmHg. IMPRESSION: No hemodynamically significant stenosis seen within the carotid arteries. Electronically signed by: Rashard Bowman M.D. 06/26/2017 2:09 PM Dictated Date/Time: 06/26/2017 2:07 PM
== END | disposition home or self-care (01) ==
LOC: C.MRIBC 12:43
PROVIDERS: ATTEND Psychiatry & Neurology Neurology
DX: R51 Headache (principal); R29.90 Unspecified symptoms and signs involving the nervous system; Z82.49 Family history of ischemic heart disease and other diseases of the circulatory system

== ENCOUNTER → 2017-07-05 | Outpatient (CLI) | payer OTHER ==
--- NOTE | 2017-07-05 17:05 | ECHOCARDIOGRAM REPORT ---
*NOTICE TO RECEIVING CONSTITUTION PARTY AGENCY This information is strictly Confidential and protected under [place] law. [place] law prohibits you from making any further disclosure of this information unless further disclosure is expressly permitted by the written consent of the person to whom it pertains or is authorized by law. A general authorization for the release of medical or other information is not sufficient for this purpose. Hospital accepts no responsibility if the information is made available to any other person, INCLUDING THE PATIENT. Interpretation Summary * Name: ERIKA CARRIZALES Study Date: 07/05/2017 01:18 PM BP: 136/66 mmHg * Patient Location: [facility] HR: 64 * : 1965 (M/d/yyyy) Gender: Female Height: 68 in * Age: 52 yrs Ethnicity: CA Weight: 120 lb * Ordering Physician: Kev Burrell * Referring Physician: Kev Burrell * Performed By: Nel Sam RDCS * * Reason For Study: Cerebral ischemia/embolus * BSA: 1.6 m2 * -- Conclusions -- * Left ventricular systolic function is normal. * No regional wall motion abnormalities noted. * Ejection Fraction = 65-70%. * There is mild tricuspid regurgitation. * Injection of contrast documented an interatrial shunt consistent with a patent foramen ovale. Procedure Details * A complete two-dimensional transthoracic echocardiogram was performed (2D, M-mode, Doppler and color flow Doppler). * A saline contrast injection was performed to assess for cardiac shunting. * The injection was performed through an intravenous line in the right arm. * The attending nurse who injected the saline contrast was Evelio Haley RN. * A total of 20 cc of agitated saline was given. Left Ventricle * The left ventricle is normal in size. * There is normal left ventricular wall thickness. * Ejection Fraction = 65-70%. * Left ventricular systolic function is normal. * No regional wall motion abnormalities noted. Right Ventricle * The right ventricle is normal size. * The right ventricular systolic function is normal as assessed by tricuspid annular plane systolic excursion (TAPSE) (normal >1.5 cm). Atria * The left atrial size is normal. * Right atrial size is normal. * Injection of contrast documented an interatrial shunt. Mitral Valve * The mitral valve is normal in structure and function. * Mitral stenosis is absent. * Significant mitral regurgitation is absent. Tricuspid Valve * The tricuspid valve anatomy is normal. * There is mild tricuspid regurgitation. Aortic Valve * The aortic valve is normal in structure and function. * Aortic stenosis is absent. * No aortic regurgitation is present. Pulmonic Valve * The pulmonary valve is not well seen, but the Doppler examination is normal without significant regurgitation or stenosis. Great Vessels * The aortic root is normal size. * The pulmonary is not well visualized. Pericardium/Pleural * There is no pericardial effusion. Great Vessels * Normal inferior vena cava size and collapsability with sniff indicates a normal right atrial pressure of 3 mmHg MMode 2D Measurements and Calculations IVSd 0.70 cm LVIDd 3.6 cm LVIDs 2.3 cm LVPWd 0.85 cm IVS/LVPW 0.82 FS 35.9 % EDV(Teich) 53.9 ml ESV(Teich) 18.1 ml EF(Teich) 66.5 % EDV(cubed) 46.1 ml ESV(cubed) 12.1 ml EF(cubed) 73.7 % LV mass(C)d 75.0 grams LV mass(C)dI 45.6 grams/m\S\2 SV(Teich) 35.8 ml SI(Teich) 21.8 ml/m\S\2 SV(cubed) 33.9 ml SI(cubed) 20.6 ml/m\S\2 Ao root diam 2.6 cm Ao root area 5.4 cm\S\2 ACS 1.8 cm LA dimension 2.8 cm asc Aorta Diam 2.8 cm LA/Ao 1.1 LVOT diam 2.0 cm LVOT area 3.0 cm\S\2 LVAd ap4 18.6 cm\S\2 LVLd ap4 6.4 cm EDV(MOD-sp4) 43.8 ml EDV(sp4-el) 45.6 ml LVAs ap4 9.7 cm\S\2 LVLs ap4 5.3 cm ESV(MOD-sp4) 15.1 ml ESV(sp4-el) 15.3 ml EF(MOD-sp4) 65.5 % EF(sp4-el) 66.4 % LVAd ap2 26.8 cm\S\2 LVLd ap2 8.1 cm EDV(MOD-sp2) 71.7 ml EDV(sp2-el) 74.8 ml LVAs ap2 13.9 cm\S\2 LVLs ap2 6.2 cm ESV(MOD-sp2) 26.0 ml ESV(sp2-el) 26.7 ml EF(MOD-sp2) 63.7 % EF(sp2-el) 64.4 % LVLd %diff 21.0 % EDV(MOD-bp) 63.1 ml LVLs %diff 15.1 % ESV(MOD-bp) 21.5 ml EF(MOD-bp) 65.9 % SV(MOD-sp4) 28.7 ml SI(MOD-sp4) 17.5 ml/m\S\2 SV(MOD-sp2) 45.6 ml SI(MOD-sp2) 27.7 ml/m\S\2 SV(MOD-bp) 41.6 ml SI(MOD-bp) 25.3 ml/m\S\2 SV(sp4-el) 30.2 ml SI(sp4-el) 18.4 ml/m\S\2 SV(sp2-el) 48.1 ml SI(sp2-el) 29.3 ml/m\S\2 Doppler Measurements and Calculations MV E max diana 97.6 cm/sec MV A max diana 70.1 cm/sec MV E/A 1.4 MV P1/2t max diana 112.2 cm/sec MV P1/2t 81.8 msec MVA(P1/2t) 2.7 cm\S\2 MV dec slope 401.6 cm/sec\S\2 MV dec time 0.25 sec Ao V2 max 114.2 cm/sec Ao max PG 5.2 mmHg Ao max PG (full) 1.7 mmHg ADONIS(V,A) 2.5 cm\S\2 ADONIS(V,D) 2.5 cm\S\2 LV V1 max PG 3.5 mmHg LV V1 max 93.8 cm/sec PA V2 max 92.3 cm/sec PA max PG 3.4 mmHg PA acc slope 660.0 cm/sec\S\2 PA acc time 0.10 sec PI max diana 129.4 cm/sec PI max PG 6.7 mmHg PI dec slope 193.8 cm/sec\S\2 PI P1/2t 195.6 msec TR max diana 82.0 cm/sec PA pr(Accel) 35.3 mmHg
== END | disposition home or self-care (01) ==
LOC: C.CPL 12:28
PROVIDERS: ATTEND Psychiatry & Neurology Neurology
DX: R29.90 Unspecified symptoms and signs involving the nervous system (principal); R20.0 Anesthesia of skin

== ENCOUNTER → 2017-07-28 | Outpatient (CLI) | payer OTHER ==
[~2017-07-28] MED LIST changes: +FAMO20TA9 PO
--- NOTE | 2017-07-28 08:39 | DIAGNOSTIC IMAGING REPORT ---
ABDOMEN COMPLETE (US) CLINICAL HISTORY: Nausea and decreased appetite. COMPARISON STUDY: No previous studies for comparison. FINDINGS: Liver morphology is normal. A few hepatic cysts are noted. A 1.3 cm echogenic right hepatic lobe lesion contains no color flow. This favors a hemangioma. The gallbladder is normal. There are no gallstones. The pancreas is within normal limits although the head and tail are slightly obscured. There is no biliary ductal dilatation. The size of the spleen is normal. The right kidney measures 9.9 cm and the left measures 10.7 cm. There is no hydronephrosis. Renal echogenicity, size and cortical thickness are normal. The caliber of the abdominal aorta is normal. Visualized portions of the IVC are patent. IMPRESSION: 1. No gallstones or biliary ductal dilatation. 2. No hydronephrosis. 3. 1.3 cm echogenic right hepatic lobe lesion which favors a hemangioma. Several small hepatic cysts. Electronically signed by: Keith Cosby M.D. 07/28/2017 8:38 AM Dictated Date/Time: 07/28/2017 8:36 AM
--- NOTE | 2017-07-28 08:47 | DIAGNOSTIC IMAGING REPORT ---
CHEST 2 VIEWS ROUTINE HISTORY: 52 years-old Female ENLARGED LYMPH NODES acute chest pain with lymphadenopathy COMPARISON: Chest radiograph 06/24/2017 TECHNIQUE: PA and lateral views of the chest FINDINGS: Cardiomediastinal and hilar silhouettes are within normal limits. There is no pneumothorax, pleural effusion, focal airspace consolidation or overt pulmonary edema. The bones of the chest appear grossly intact. IMPRESSION: No acute process. The above report was generated using voice recognition software. It may contain grammatical, syntax or spelling errors. Electronically signed by: Jan Dye M.D. 07/28/2017 8:45 AM Dictated Date/Time: 07/28/2017 8:29 AM
--- NOTE | 2017-07-28 08:47 | DIAGNOSTIC IMAGING REPORT ---
NECK ULTRASOUND HISTORY: NAUSEA,DECREASED APPETITE,R59.9 COMPARISON: None. FINDINGS: Real-time sonographic imaging of the left neck was performed. No masses or fluid collection identified within the left neck. There are few small lymph nodes measuring subcentimeter in short axis diameter. These do not meet sonographic criteria for pathologic involvement. IMPRESSION: No significant abnormality within the left neck. Electronically signed by: Abhi Krishnan M.D. 07/28/2017 8:46 AM Dictated Date/Time: 07/28/2017 8:45 AM
== END | disposition home or self-care (01) ==
LOC: C.ULTRBC 07:43
PROVIDERS: ATTEND Family Medicine
DX: R59.9 Enlarged lymph nodes, unspecified (principal); R20.0 Anesthesia of skin

== ENCOUNTER 2017-07-31 15:57 | Emergency (ER) | payer OTHER ==
[~2017-07-31] VITALS: Ht 172.7 cm; Wt 56.3 kg
[~2017-07-31 15:57] MED LIST changes: -FAMO20TA9 PO
[2017-07-31 16:01] VITALS: TEMP 36.7; Ht 172.7 cm; Wt 56.3 kg
[2017-07-31] MEDS ORDERED: KETOROLAC TROMETHAMINE 30 MG/ML VIAL IV STA (16:08)
[2017-07-31] MEDS ORDERED: SODIUM CHLORIDE 0.9% 1000ML 1,000 ML IV STA (16:08)
[2017-07-31 16:14] VITALS: O2SAT 97
[2017-07-31] MEDS ORDERED: DEXAMETHASONE **PF** INJ 10 MG/ML VIAL IV ONE (16:15)
[2017-07-31 16:39] LABS: BASO % 0.2 %; BASO ABS # 0.01 K/uL (0-0.2); EOS % 1.9 %; EOS ABS # 0.11 K/uL (0-0.5); HEMATOCRIT 35.5 % (37-47); HEMOGLOBIN 12.3 g/dL (12.0-16.0); IG# 0.01 K/uL (0.00-0.02); LYMPH % 31.5 %; LYMPH ABS # 1.84 K/uL (1.2-3.4); MEAN CELL VOLUME 92.4 fL (80-100); MEAN CORPUSCULAR HGB CONC 34.6 g/dl (32-36); MEAN PLATELET VOLUME 10.9 fL (7.4-10.4); MONO % 9.1 %; MONO ABS # 0.53 K/uL (0.11-0.59); NEUT % 57.1 %; NEUT ABS # 3.34 K/uL (1.4-6.5); PLATELET COUNT 227 K/uL (130-400); RED CELL DISTRIBUTION WIDTH CV 13.2 % (11.5-14.5); RED CELL DISTRIBUTION WIDTH SD 44.3 fL (36.4-46.3); WHITE BLOOD COUNT 5.84 K/uL (4.8-10.8)
--- NOTE | 2017-07-31 16:52 | DIAGNOSTIC IMAGING REPORT ---
SINGLE VIEW CHEST CLINICAL HISTORY: Atypical chest pain. FINDINGS: An AP, portable, upright chest radiograph is compared to study dated 07/28/2017. The cardiomediastinal silhouette is unremarkable. The lungs and pleural spaces are clear. No pneumothorax is seen. The bony thorax is grossly intact. IMPRESSION: No active disease in the chest. Electronically signed by: José Hwang M.D. 07/31/2017 4:51 PM Dictated Date/Time: 07/31/2017 4:50 PM
--- NOTE | 2017-07-31 16:56 | EMERGENCY ROOM VISIT NOTE ---
History Report prepared by Mehrdad: Iain Carrion Under the Supervision of: Dr. Davide Trejo M.D. First contact with patient: 16:04 Chief Complaint: CHEST PAIN Stated Complaint: HEART,CHEST PAIN,NAUSEA History of Present Illness The patient is a 52 year old female who presents to the Emergency Room with complaints of constant left sided chest pain starting last night that feels like a jabbing pain. The patient notes that she has been coughing, and last night she had some cough medicine, and then afterwards she got some chest burning. The patient notes that she has had similar chest pain over the past few months, though today is worse than usual. She additionally notes that she is having shortness of breath, nausea, and fatigue. The patient states that she was in the ED for similar chest pain, and she had an x-ray, and it was negative. She additionally states that she recently had an ultrasound of her stomach, neck, and chest pain. The patient states that she has been seeing a neurologist for headaches recently, and they did not find anything significant. She states that she has never been a smoker before, and she states that she is currently on Lamictal and Keppra for epilepsy. She denies any history of PE or DVTs. She notes that her mother had a heart attack at the age of 50, though she was a smoker. The patient states that she took ibuprofen last night for the pain , though she has not taken any today. Source of History: patient Onset: last night Position: chest (left) Quality: other (jabbing) Timing: constant Associated Symptoms: + cough, + SOB, + nausea, + fatigue Review of Systems See HPI for pertinent positives and negatives. A total of ten systems were reviewed and were otherwise negative. Past Medical & Surgical Medical Problems: (1) Epilepsy Family History FH: heart attack Seizures Stent Social History Smoking Status: Never Smoker Alcohol Use: none Drug Use: none Marital Status: Housing Status: lives with significant other Current/Historical Medications Scheduled Famotidine (Pepcid), 20 MG PO BID Lamotrigine (Lamictal), 200 MG PO BID Levetiracetam (Keppra), 250 MG PO BID Allergies Coded Allergies: Cephalexin (Verified Allergy, Unknown, HIVES/SWELLING, 05/29/17) Penicillins (Verified Allergy, Unknown, HIVES/SWELLING, 05/29/17) Physical Exam Vital Signs Date Time Temp Pulse Resp B/P (MAP) Pulse Ox O2 Delivery O2 Flow Rate FiO2 07/31/17 17:49 72 16 128/83 99 Room Air 07/31/17 16:42 76 07/31/17 16:30 97 Room Air 07/31/17 16:14 97 Room Air 07/31/17 16:01 36.7 90 20 135/85 99 Room Air Physical Exam GENERAL: Awake, alert, anxious-appearing, in no distress HENT: Normocephalic, atraumatic. Dry mucous membranes otherwise oropharynx unremarkable. EYES: Normal conjunctiva. Sclera non-icteric. NECK: Supple. No nuchal rigidity. FROM. No JVD. RESPIRATORY: Clear to auscultation. CARDIAC: Regular rate, normal rhythm. Extremities warm and well perfused. Pulses equal. ABDOMEN: Soft, non-distended. No tenderness to palpation. No rebound or guarding. No masses. RECTAL: Deferred. MUSCULOSKELETAL: Chest examination reveals no tenderness. The back is symmetrical on inspection without obvious abnormality. There is no CVA tenderness to palpation. No joint edema. LOWER EXTREMITIES: Calves are equal size bilaterally and non-tender. No edema. No discoloration. NEURO: Normal sensorium. No sensory or motor deficits noted. SKIN: No rash or jaundice noted. Medical Decision & Procedures ER Provider Diagnostic Interpretation: Radiology results as stated below per my review and radiologist interpretation: SINGLE VIEW CHEST CLINICAL HISTORY: Atypical chest pain. FINDINGS: An AP, portable, upright chest radiograph is compared to study dated 07/28/2017. The cardiomediastinal silhouette is unremarkable. The lungs and pleural spaces are clear. No pneumothorax is seen. The bony thorax is grossly intact. IMPRESSION: No active disease in the chest. Electronically signed by: José Hwang M.D. 07/31/2017 4:51 PM Dictated Date/Time: 07/31/2017 4:50 PM Laboratory Results 07/31/17 16:25 Red Blood Count 3.84, Mean Corpuscular Volume 92.4, Mean Corpuscular Hemoglobin 32.0, Mean Corpuscular Hemoglobin Concent 34.6, Mean Platelet Volume 10.9, Neutrophils (%) (Auto) 57.1, Lymphocytes (%) (Auto) 31.5, Monocytes (%) (Auto) 9.1, Eosinophils (%) (Auto) 1.9, Basophils (%) (Auto) 0.2, Neutrophils # (Auto) 3.34, Lymphocytes # (Auto) 1.84, Monocytes # (Auto) 0.53, Eosinophils # (Auto) 0.11, Basophils # (Auto) 0.01 07/31/17 16:25 Test 07/31/17 16:25 White Blood Count 5.84 K/uL (4.8-10.8) Red Blood Count 3.84 M/uL (4.2-5.4) Hemoglobin 12.3 g/dL (12.0-16.0) Hematocrit 35.5 % (37-47) Mean Corpuscular Volume 92.4 fL (80-100) Mean Corpuscular Hemoglobin 32.0 pg (25-34) Mean Corpuscular Hemoglobin Concent 34.6 g/dl (32-36) Platelet Count 227 K/uL (130-400) Mean Platelet Volume 10.9 fL (7.4-10.4) Neutrophils (%) (Auto) 57.1 % Lymphocytes (%) (Auto) 31.5 % Monocytes (%) (Auto) 9.1 % Eosinophils (%) (Auto) 1.9 % Basophils (%) (Auto) 0.2 % Neutrophils # (Auto) 3.34 K/uL (1.4-6.5) Lymphocytes # (Auto) 1.84 K/uL (1.2-3.4) Monocytes # (Auto) 0.53 K/uL (0.11-0.59) Eosinophils # (Auto) 0.11 K/uL (0-0.5) Basophils # (Auto) 0.01 K/uL (0-0.2) RDW Standard Deviation 44.3 fL (36.4-46.3) RDW Coefficient of Variation 13.2 % (11.5-14.5) Immature Granulocyte % (Auto) 0.2 % Immature Granulocyte # (Auto) 0.01 K/uL (0.00-0.02) Anion Gap 6.0 mmol/L (3-11) Est Creatinine Clear Calc Drug Dose 70.5 ml/min Estimated GFR () 94.7 Estimated GFR (Non- 81.7 BUN/Creatinine Ratio 15.5 (10-20) Calcium Level 8.4 mg/dl (8.5-10.1) Magnesium Level 2.2 mg/dl (1.8-2.4) Total Bilirubin 0.3 mg/dl (0.2-1) Direct Bilirubin 0.1 mg/dl (0-0.2) Aspartate Amino Transf (AST/SGOT) 13 U/L (15-37) Alanine Aminotransferase (ALT/SGPT) 19 U/L (12-78) Alkaline Phosphatase 111 U/L (45-117) Troponin I < 0.015 ng/ml (0-0.045) Total Protein 7.5 gm/dl (6.4-8.2) Albumin 4.1 gm/dl (3.4-5.0) Lipase 200 U/L (73-393) Laboratory results reviewed by me Medications Administered Medications (Trade) Dose Ordered Sig/Soni Route Start Time Stop Time Status Last Admin Dose Admin Sodium Chloride 1,000 ml @ 999 mls/hr Q1H1M STAT IV 07/31/17 16:08 07/31/17 17:08 DC 07/31/17 16:36 999 MLS/HR Ketorolac Tromethamine (Toradol Inj) 15 mg NOW STAT IV 07/31/17 16:08 07/31/17 16:18 DC 07/31/17 16:35 15 MG Dexamethasone Sodium Phosphate (Dexamethasone Inj Pf) 10 mg NOW ONCE IV 07/31/17 16:15 07/31/17 16:18 DC 07/31/17 16:35 10 MG Famotidine (Pepcid Tab) 20 mg NOW ONCE PO 07/31/17 17:30 07/31/17 17:31 DC 07/31/17 17:30 20 MG Miscellaneous Medication (Gi Cocktail) 24 ml NOW STAT PO 07/31/17 17:23 07/31/17 17:25 DC 07/31/17 17:23 24 ML ECG Per My Interpretation Indication: chest pain Rate (beats per minute): 79 Rhythm: normal sinus Findings: no acute ischemic change, other (normal axis) ED Course 1604: The patient was evaluated in room C5. A complete history and physical exam was performed. Medical Decision I reviewed the patient's past medical history, medications, and the nursing notes as described above. Differential diagnosis: Etiologies such as cardiac ischemia, aortic dissection, pulmonary embolism, pneumonia, pneumothorax, musculoskeletal, infections, pericarditis, myocarditis , esophageal rupture, gastrointestinal, as well as others were entertained. The patient is a 52-year-old woman with a past medical history of seizure disorder who presents emergency department with worsening of her daily intermittent chest pain that has been ongoing for the past several months per hpi. Patient reports her symptoms began this morning have been constant since she woke up. Of note, the patient was seen in the ED on 06/24 for similar evaluation and had negative workup including a negative d-dimer. EKG unremarkable. Troponin negative in the setting of constant symptoms. Labs otherwise unremarkable including WBC within normal limits. Chest x-ray negative. Patient was given Toradol and dexamethasone for anti-inflammatory effect with no improvement in her symptoms. I explained to the patient narcotics are an effective pain medication for acute severe pain such as from a bone fracture or after surgery, however given that there is no indication of any emergent process at this time there is no indication for narcotics. We did agree however to trial GI cocktail and Pepcid. On reevaluation the patient did report improvement in her symptoms. Thus, it is possible the patient may be due to underlying reflux or gastritis. Otherwise, Heart score 2, low risk, acs unlikely. Recent negative D-dimer, PE not likely. Not positional, pericarditis not likely. No tearing pain and equal pulses, dissection not likely. Patient will follow-up with PCP for reevaluation and possible GI referral if no improvement. Findings and plan for follow-up reviewed with patient. Patient agreeable and d/c'd per discharge instructions. Medication Reconcilliation Current Medication List: was personally reviewed by me Impression Primary Impression: Substernal precordial chest pain Scribe Attestation The scribe's documentation has been prepared under my direction and personally reviewed by me in its entirety. I confirm that the note above accurately reflects all work, treatment, procedures, and medical decision making performed by me. Departure Information Dispostion Home / Self-Care Prescriptions Famotidine (PEPCID) 20 Mg Tab 20 MG PO BID for 14 Days, #28 TAB Prov: Davide Trejo M.D. 07/31/17 Referrals Mariposa Valle D.O. (PCP) Patient Instructions Acid Reflux, ED Chest Pain Atypical Unkn Cause, ED Gastritis, ED PUD Vs Gastritis, My [facility] Additional Instructions Please follow up with your primary care physician in the next 1-3 days for re- evaluation and possible GI referral if symptoms do not improve. The cause of your symptoms is unclear at this time but may be related to acid reflux/gastritis. Otherwise, your exam, EKG, chest xray, and lab results did not show signs of an emergent condition at this time. Pepcid for acid reduction as directed. Tums as needed for additional relief from GI upset/chest upper abdominal pain. Drink plenty of fluids to ensure hydration. Return to the emergency department for worsening symptoms as described in the accompanying instructions.
[2017-07-31 17:02] LABS: ALBUMIN 4.1 gm/dl (3.4-5.0); ALT/SGPT 19 U/L (12-78); AST/SGOT 13 U/L (15-37); BLOOD UREA NITROGEN 13 mg/dl (7-18); CALCIUM 8.4 mg/dl (8.5-10.1); CARBON DIOXIDE 28 mmol/L (21-32); CREATININE 0.82 mg/dl (0.60-1.20); GLUCOSE 76 mg/dl (70-99); LIPASE 200 U/L (73-393); POTASSIUM 3.8 mmol/L (3.5-5.1); SODIUM 140 mmol/L (136-145)
[2017-07-31 17:07] LABS: ALKALINE PHOSPHATASE 111 U/L (45-117); TOTAL PROTEIN 7.5 gm/dl (6.4-8.2)
[2017-07-31] MEDS ORDERED: GI COCKTAIL PO STA (17:23)
[2017-07-31] MEDS ORDERED: FAMOTIDINE 20 MG TAB PO ONE (17:30)
[2017-07-31] MEDS ORDERED: ALUMINUM/MAGNESIUM SUSP 30 ML UDC ONE (17:43)
[2017-07-31] MEDS ORDERED: LIDOCAINE HCL 2% VISC SOLN 20 ML UDC ONE (17:43)
[2017-07-31 17:49] VITALS: BP 128/83; PULSE 72; O2SAT 99
[2017-07-31] MEDS ORDERED: FAMO20TA9 PO (18:06)
[2017-08-04 12:29] LABS: KEPPRA (LEVETIRACETAM) *15142X 4.8 mcg/mL; LAMICTAL (LAMOTRIGINE)**22060 12.8 mcg/mL (4.0-18.0)
== END 2017-07-31 18:13 | disposition home or self-care (01) ==
LOC: C.EDB 15:59 → C.EDC 18:13
DX: R07.2 Precordial pain (principal); G40.909 Epilepsy, unspecified, not intractable, without status epilepticus; Z79.899 Other long term (current) drug therapy; Z82.49 Family history of ischemic heart disease and other diseases of the circulatory system; Z82.0 Family history of epilepsy and other diseases of the nervous system; Z88.0 Allergy status to penicillin; Z88.1 Allergy status to other antibiotic agents

== ENCOUNTER → 2017-08-11 | Outpatient (CLI) | payer OTHER ==
[~2017-08-11] MED LIST changes: +FAMO20TA9 PO
--- NOTE | 2017-08-14 07:43 | MAMMOGRAPHY REPORT ---
UNILATERAL LEFT DIGITAL DIAGNOSTIC MAMMOGRAM TOMOSYNTHESIS WITH CAD AND TARGETED LEFT ULTRASOUND: 08/01 CLINICAL HISTORY: The patient reports focal pain in the left lower outer breast for approximately 2 w eeks. She denies any associated palpable lumps or other complaints. TECHNIQUE: Breast tomosynthesis in addition to standard 2D mammography was performed. Current study was also evaluated with a Computer Aided Detection (CAD) system. Left CC and MLO 2D and tomosynthesi s images were obtained. COMPARISON: Comparison is made to exams dated: 02/27/2017 mammogram, 02/23/2016 mammogram, 5 mammogram, 02/18/2014 ultrasound, 02/18/2014 mammogram, and 04/28/2010 mammogram - [facility]. BREAST COMPOSITION: The tissue of the left breast is heterogeneously dense, which may obscure small masses. FINDINGS: A square marker ferrell the site of the focal pain pointed out by the patient in the left inf erior breast at approximately 6:00. No suspicious masses or other suspicious mammographic abnormalit ies are noted in this region. The remainder of the left breast is stable mammographically compared t o prior exams, without suspicious masses, calcifications, or areas of architectural distortion noted. Targeted ultrasound was performed of the area of focal pain pointed out by the patient in the left lo wer outer quadrant far inferiorly at approximately 4:00, 12 cm from the nipple. Sonographically norm al tissue is seen in this region, without evidence of a mass or other suspicious sonographic abnormal ity. IMPRESSION: ACR BI-RADS CATEGORY 2: BENIGN, TARGETED ULTRASOUND ACR BI-RADS CATEGORY 2: BENIGN No suspicious mammographic or sonographic abnormality at the site of focal pain in the left lower out er breast pointed out by the patient. There is no mammographic or targeted sonographic evidence of m alignancy. Recommend clinical follow-up for left breast pain, and recommend routine bilateral screen ing mammograms which are due February 2018. The patient has been verbally notified of the results. Approximately 10% of breast cancers are not detected with mammography. A negative mammographic report should not delay biopsy if a clinically suggestive mass is present. Jaqueline Lopez M.D. ah/:08/11/2017 10:49:11 Grain Picker: Pretty MAR(Ken)(Margi), [facility] letter sent: Normal 1/2 BI-RADS Code: ACR BI-RADS Category 2: Benign Ultrasound BI-RADS: ACR BI-RADS Category 2: Benign
== END | disposition home or self-care (01) ==
LOC: C.MAMM 09:05
PROVIDERS: ATTEND Family Medicine
DX: N64.4 Mastodynia (principal)